=== PATIENT | male | born 1985 | race Hispanic/Latino ===

== ENCOUNTER 2017-06-13 06:56 | Emergency (ER) | payer OTHER ==
[2017-06-13 07:15] VITALS: TEMP 98; O2SAT 99; BMI 25.7
--- NOTE | 2017-06-13 07:35 | ED PDOC ---
HPI: Eye Injury/Pain Time Seen by Provider: 06/13/17 07:09 Chief Complaint (Nursing): Eye Problem Chief Complaint (Provider): Eye Problem History Per: Patient History/Exam Limitations: no limitations Onset/Duration Of Symptoms: Days (x3) Current Symptoms Are (Timing): Still Present Additional Complaint(s): 31 y/o male presents to the emergency department with a complaint of a right- sided eye pain with redness and inflammation x3 days. Patient believes he cut his eye on 06/11/2017, after he took his contact out. Reports he felt worsening pain the following day and decided to visit local [facility] and was prescribed eye drops. States he has not used treatment on eyes because [facility] never sent the prescription to [facility] but used Advil without the relief of symptoms. Denies any further medical complaints. Past Medical History Reviewed: Historical Data, Nursing Documentation, Vital Signs Vital Signs: Last Vital Signs Temp 98.0 F 06/13/17 07:10 Pulse 69 06/13/17 07:10 Resp 16 06/13/17 07:10 BP 141/72 06/13/17 07:10 Pulse Ox 99 06/13/17 07:10 - Medical History PMH: No Chronic Diseases - Surgical History Surgical History: No Surg Hx - Family History Family History: States: Unknown Family Hx - Social History Current smoker - smoking cessation education provided: No Alcohol: None Drugs: Denies - Immunization History Hx Tetanus Toxoid Vaccination: No Hx Influenza Vaccination: No Hx Pneumococcal Vaccination: No - Home Medications Home Medications: Ambulatory Orders Medication Instructions Recorded Tobramycin 0.3% [Tobrex 0.3% Ophth 1 drop OD Q4 #1 bottle 06/13/17 Soln] oxyCODONE/Acetaminophen [Percocet 1 ea PO Q6 PRN #6 tab 06/13/17 5/325 mg Tab] - Allergies Allergies/Adverse Reactions: Allergies Allergy/AdvReac Type Severity Reaction Status Date / Time No Known Allergies Allergy Verified 06/13/17 07:10 Review of Systems ROS Statement: Except As Marked, All Systems Reviewed And Found Negative Eyes: Positive for: Pain (Right-sided), Eyelid Inflammation (b/l), Redness Physical Exam - Reviewed Nursing Documentation Reviewed: Yes Vital Signs Reviewed: Yes - Physical Exam Appears: Positive for: Non-toxic, No Acute Distress Head Exam: Positive for: ATRAUMATIC, NORMAL INSPECTION, NORMOCEPHALIC Skin: Positive for: Normal Color, Warm, Dry Eye Exam: Positive for: EOMI, PERRL, Conjunctival injection (of the right eye with some discharge noted.), Other (--Stain test revealed corneal abrasion around the paracentral and 5 o'clock region of the right eye. ). Negative for: Normal appearance Neck: Positive for: Normal, Supple Respiratory: Negative for: Accessory Muscle Use, Respiratory Distress Neurologic/Psych: Positive for: Alert, Oriented (x3) - ECG O2 Sat by Pulse Oximetry: 99 (RA) Pulse Ox Interpretation: Normal Medical Decision Making Medical Decision Making: Time: 07:31 Initial impression: Right eye injury Initial plan: --Fluorescein eye stain test --Evaluation --Reassessment Time: 08:36 --Percocet 5/325 mg --Stain test revealed corneal abrasion around the paracentral and 5 o'clock region of the right eye. Time: 08:39 --Patient is medically stable, and requires no further treatment in the ED at this time. Patient will be discharged home with Rx for Percocet 5/325 mg and Tobrex 0.3% Ophth Soln. Counseling was provided and all questions were answered regarding diagnosis and need for follow up with Dr. Colten Benjamin MD. There is agreement to discharge plan. Return if symptoms persist or worsen. Clinical Impression: Corneal abrasion, right with conjunctivitis Scribe Attestation: Documented by Prabha Yan, acting as a scribe for Tyler Blanco MD. Provider Scribe Attestation: All medical record entries made by the Scribe were at my direction and personally dictated by me. I have reviewed the chart and agree that the record accurately reflects my personal performance of the history, physical exam, medical decision making, and the department course for this patient. I have also personally directed, reviewed, and agree with the discharge instructions and disposition. Disposition - Clinical Impression Clinical Impression: Corneal abrasion, right, Conjunctivitis - Patient ED Disposition Is Patient to be Admitted: Yes Doctor Will See Patient In The: Office Counseled Patient/Family Regarding: Studies Performed, Diagnosis, Need For Followup - Disposition Referrals: Colten Benjamin MD [Staff Provider] - Disposition: Routine/Home Disposition Time: 08:39 Condition: GOOD Additional Instructions: Take your medications as instructed. Follow up with eye doctor within 1-2 days. Prescriptions: oxyCODONE/Acetaminophen [Percocet 5/325 mg Tab] 1 ea PO Q6 PRN #6 tab PRN Reason: Pain, Severe (8-10) Tobramycin 0.3% [Tobrex 0.3% Ophth Soln] 1 drop OD Q4 #1 bottle Instructions: Corneal Abrasion (ED) Forms: [employer] (Setswana)
[2017-06-13] MEDS ORDERED: Oxycodone/Acetaminophen 5/325 mg Tab PO ONE (08:36)
[2017-06-13 08:46] VITALS: BP 128/86; PULSE 82; RESP 18
== END 2017-06-13 08:46 | disposition home or self-care (01) ==
LOC: H.ER 06:56
DX: S05.01XA Injury of conjunctiva and corneal abrasion without foreign body, right eye, initial encounter (principal); H10.9 Unspecified conjunctivitis